=== PATIENT | female | born 1990 | race Caucasian/White ===

== ENCOUNTER 2025-01-31 10:09 | Emergency (ER) | payer OTHER ==
[~2025-01-31] VITALS: Ht 154.9 cm; Wt 49.9 kg
[2025-01-31] MEDS ORDERED: METHYLPREDNISOLONE SOD SUCC 125 MG VIAL IV ONE (12:00)
[2025-01-31] MEDS ORDERED: DIPHENHYDRAMINE HCL 50 MG/ML VIAL 1ML IV ONE (12:00)
== END 2025-01-31 12:45 | disposition home or self-care (01) ==
LOC: ER 10:16
DX: T78.40XA Allergy, unspecified, initial encounter (principal); X58.XXXA Exposure to other specified factors, initial encounter; Y92.89 Other specified places as the place of occurrence of the external cause